=== PATIENT | female | born 1945 | race Caucasian/White ===

== ENCOUNTER → 2016-10-11 | Outpatient (CLI) | payer OTHER ==
[~2016-10-11] MED LIST: CHOL1TAB42 PO; CORACAP6 PO; LUTE15CA PO; MISCCAP80 PO; MULT-506 PO
--- NOTE | 2016-10-11 12:36 | MAMMOGRAPHY REPORT ---
BILATERAL DIGITAL SCREENING MAMMOGRAM WITH CAD: 10/11/2016 CLINICAL HISTORY: Routine screening. Patient has no complaints. TECHNIQUE: Current study was also evaluated with a Computer Aided Detection (CAD) system. Bilatera l CC and MLO views were obtained. COMPARISON: Comparison is made to exams dated: 09/22/2015 mammogram, 09/21/2014 mammogram, 08/13/2013 mammogram - [facility], 08/05/2012 mammogram, 07/31/2011 mammogram, and 05/26/2009. BREAST COMPOSITION: There are scattered areas of fibroglandular density in both breasts. FINDINGS: No suspicious masses, calcifications, or areas of architectural distortion are noted in e ither breast. There has been no significant interval change compared to prior exams. IMPRESSION: ACR BI-RADS CATEGORY 1: NEGATIVE There is no mammographic evidence of malignancy. A 1 year screening mammogram is recommended. The p atient will receive written notification of the results. Approximately 10% of breast cancers are not detected with mammography. A negative mammographic repor t should not delay biopsy if a clinically suggestive mass is present. Keshia Nash M.D. ah/:10/11/2016 10:24:14 Networker: Katie ROSE(Zach)(Basilia), [facility] letter sent: Normal 1/2 BI-RADS Code: ACR BI-RADS Category 1: Negative
== END | disposition home or self-care (01) ==
LOC: C.MAMM 09:59
PROVIDERS: ATTEND Family Medicine
DX: Z12.31 Encounter for screening mammogram for malignant neoplasm of breast (principal)

== ENCOUNTER 2021-03-04 16:04 | Inpatient (IN) ==
[2021-03-04] MEDS ORDERED: MoRPHine SULFATE 4 MG/ML 1 ML CARP\\VIAL IV STA (16:22)
[2021-03-04] MEDS ORDERED: ONDANSETRON INJ 2 MG/ML 2 ML VIAL IV STA (16:22)
[2021-03-04] MEDS ORDERED: PIPERACILLIN/TAZOBACTAM 4.5 GM/120 ML BAG IV ONE (16:25)
[2021-03-04] MEDS ORDERED: PIPERACILL/TAZOBAC CONSULT ACTIVE PRN ×2 (16:25→20:38)
--- NOTE | 2021-03-04 16:25 | Emergency Department Note ---
History of Present Illness General Chief complaint: Abdominal Pain Stated complaint: postive ct for diverticulitis-seen shonaabd pain Time Seen by Provider: 03/04/21 16:15 Source: patient History of Present Illness Provider complaint: Left lower quad abdominal pain Onset (ago): day(s) Location: abdomen and left Radiation: non-radiation Pain Consistency: + constant Maximum Pain Intensity: 9 Quality: + sharp Relieved By: + none Associated symptoms: no chest pain, no cough, no fever/chills, no nausea/vomiting and no shortness of breath This is a 75-year-old female presents with left lower quadrant abdominal pain since yesterday. She describes the pain is sharp. It is located in the left lower quadrant without radiation. No alleviating factors. No associated fever, vomiting, diarrhea or rectal bleeding. She did have a CAT scan today of the abdomen pelvis which showed diverticulitis and she was sent here for further evaluation. She denies any prior history of diverticulitis. She denies any chest pain, shortness of breath, cough or cold symptoms or urinary symptoms. Home Medications Medication Instructions Recorded Confirmed Type Lacto.acidophilus-Bif.animalis 1 cap PO DAILY 03/04/21 03/04/21 History [Probiotic] calcium carbonate [Os-Kayden] 500 mg PO DAILY 03/04/21 03/04/21 History cholecalciferol (vitamin D3) 50 mcg PO DAILY 03/04/21 03/04/21 History loratadine 10 mg PO DAILY 03/04/21 03/04/21 History lutein 0 mg PO DAILY 03/04/21 03/04/21 History multivitamin 1 tab PO DAILY 03/04/21 03/04/21 History Allergies Allergy/AdvReac Type Severity Reaction Status Date / Time No Known Allergies Allergy Mild Unverified 03/04/21 17:00 Past Med/Surg History Medical History (Updated 03/04/21 @ 19:52 by Julio Whitman MD) Hypothyroidism Osteopenia Social History Smoking Status: Never smoker Feels Safe at Home: Yes Review of Systems See HPI for pertinent positives & negatives. and A total of 10 systems reviewed and were otherwise negative Physical Exam Vital Signs Vital Signs - 24 hr 03/04/21 16:07 03/04/21 16:34 03/04/21 17:00 Temperature 36.5 C Temperature Source Oral Pulse Rate 88 Pulse Rate [Left Finger] 76 81 Pulse Rhythm [Left Finger] Regular Regular Pulse Strength [Left Finger] Normal Normal Respiratory Rate 20 20 18 Respiratory Effort / Characteristics Non-Labored Spontaneous Non-Labored Spontaneous Respiratory Depth Normal Normal Respiratory Pattern Regular Regular Blood Pressure 152/81 H Blood Pressure [Right Arm] 147/75 H 147/86 H Blood Pressure Mean 104 Blood Pressure Mean [Right Arm] 99 106 Blood Pressure Position [Right Arm] Sitting Sitting Pulse Oximetry 95 94 95 Oxygen Delivery Method Room Air Room Air Room Air Sepsis Recent Fever Within 48 Hours No Sepsis New/Unexplained Change in Mental Status N/A Sepsis Action Taken by Nursing No Action Required 03/04/21 18:21 03/04/21 19:00 Temperature Temperature Source Pulse Rate Pulse Rate [Left Finger] 70 Pulse Rhythm [Left Finger] Regular Pulse Strength [Left Finger] Normal Respiratory Rate 20 Respiratory Effort / Characteristics Non-Labored Spontaneous Respiratory Depth Normal Respiratory Pattern Regular Blood Pressure Blood Pressure [Right Arm] 122/71 114/61 Blood Pressure Mean Blood Pressure Mean [Right Arm] 88 78 Blood Pressure Position [Right Arm] Sitting Sitting Pulse Oximetry 96 Oxygen Delivery Method Room Air Sepsis Recent Fever Within 48 Hours Sepsis New/Unexplained Change in Mental Status Sepsis Action Taken by Nursing Constitutional: Vital signs reviewed. Eyes: Pupils are equal round reactive to light. Conjunctiva are noninjected. ENT: Pharynx is clear without erythema or exudate. Mucous membranes are slightly dry. Neck supple without meningeal signs. Respiratory: Clear to auscultation bilaterally. Breath sounds are equal bilaterally. Cardiovascular: Regular rate and rhythm. No rubs or gallops. GI: Soft, nondistended with left lower quadrant tenderness. Voluntary guarding. Bowel sounds are present. Musculoskeletal: No peripheral edema. No lower extremity tenderness. Integumentary: No cyanosis. or jaundice. Neurological: The patient is awake and alert. No focal deficits. Psychiatric: Anxious. Course Administered Medications Famotidine (Famotidine 20mg/5ml Iv Push) 20 mg IV DAILY [facility] Stop: 04/03/21 17:29 Last Admin: 03/04/21 19:31 Dose: 20 mg Documented by: [id number] Sodium Chloride (Nss) 500 mls @ 125 mls/hr IV .Q4H [place]AK[place] Stop: 04/03/21 16:29 Last Admin: 03/04/21 16:31 Dose: 125 mls/hr Documented by: [id number] Discontinued Medications Piperacillin Sod/Tazobactam Sod (Zosyn) 4.5 gm in 120 mls @ 240 mls/hr IV NOW ONE Stop: 03/04/21 16:54 Last Infusion: 03/04/21 17:03 Dose: 0 mls/hr Documented by: [id number] Admin: 03/04/21 16:31 Dose: 240 mls/hr Documented by: [id number] Morphine Sulfate (Morphine Sulfate 4 Mg/Ml 1 Ml Carp\Vial) 4 mg IV NOW STA Stop: 03/04/21 16:23 Last Admin: 03/04/21 16:31 Dose: 4 mg Documented by: [id number] Ondansetron HCl (Ondansetron Inj 2 Mg/Ml 2 Ml Vial) 4 mg IV NOW STA Stop: 03/04/21 16:23 Last Admin: 03/04/21 16:31 Dose: 4 mg Documented by: [id number] Medical Decision Making Differential Diagnosis Diverticulitis, abscess, perforation, peritonitis, dehydration Medical Records Attestation: I reviewed the patient's medical records. She had a CT of the abdomen pelvis today which showed the followin. Findings are consistent with acute diverticulitis of the distal descending/proximal sigmoid colon. 2. No intraperitoneal free air is identified. 3. Suspect a 1.5 cm intramural abscess of the sigmoid colon. 4. A small volume of free fluid in the left lower quadrant and pelvis is likely reactive. Home Medications Current Medication List: was personally reviewed by me Laboratory Data Attestation: I reviewed the patient's lab results. Lab Results 03/04/21 03/04/21 03/04/21 Range/Units 16:18 16:59 16:59 Lactate (0.4-2.0) mmol/L C-Reactive Protein 7.90 H (0-0.29) mg/dl COVID-19 Eval Order Covid19 at [facility] [place] SARS-CoV-2 (PCR) NEGATIVE (Negative) 03/04/21 Range/Units 18:37 Lactate 1.7 (0.4-2.0) mmol/L C-Reactive Protein (0-0.29) mg/dl COVID-19 Eval Order SARS-CoV-2 (PCR) (Negative) MDM Narrative I did evaluate the patient as noted above. She is presenting with a CAT scan which is positive for diverticulitis as well as an intramural abscess. She had blood work earlier today which showed a white count of 19,000. IV access was established. I did treat her with IV morphine and Zofran. She is also given normal saline IV. I also treated her with Zosyn 4.5 g IV. I did discuss the case with the surgeon on-call. Dr. Hernandez recommended IV antibiotics and did not feel any acute surgical intervention was required. I did order a Covid swab which was negative. I did discuss the case with the hospitalist and case resolution specialist. Impression & Plan Acute diverticulitis, Abscess of sigmoid colon due to diverticulitis Discharge Plan Visit Data Chief Complaint: Abdominal Pain Stated Complaint: postive ct for diverticulitis-seen [facility] pain ED Provider: Julio Whitman Discharge Problem: Acute diverticulitis, Abscess of sigmoid colon due to diverticulitis Patient Disposition: Being Evaluated by Hospitalist Forms Stand Alone Forms: My [facility] Prescriptions Prescriptions: No Action multivitamin Tablet 1 tab PO DAILY RF: 0 calcium carbonate [Os-Kayden] 500 mg calcium (1,250 mg) Tablet 500 mg PO DAILY RF: 0 loratadine 10 mg Tablet 10 mg PO DAILY RF: 0 cholecalciferol (vitamin D3) 50 mcg (2,000 unit) Tablet 50 mcg PO DAILY RF: 0 lutein 10 mg Tablet 0 mg PO DAILY RF: 0 Probiotic 5 billion cell Capsule, Sprinkle 1 cap PO DAILY RF: 0 Referrals Referrals: Julieth Farias DO [Primary Care Provider] -
[2021-03-04] MEDS: SODIUM CHLORIDE 0.9% 500 ML IV SCH (16:31)
--- NOTE | 2021-03-04 17:50 | History & Physical Report ---
Date of Service March 04, 2021 Assessment & Plan (1) Diverticulitis: Findings are consistent with acute diverticulitis of the distal descending/proximal sigmoid colon; Suspect a 1.5 cm intramural abscess of the sigmoid colon. - Acute- no evidence of perforation - No evidence of sepsis - Lactate pending - Zosyn 3.375GM IV - Clears - Follow clinical response, consider re-imaging in 48 hours to re-evaluate - Famotidine while on clears with her increase in NSAID use over the week (2) Leukocytosis: WBC 19 with NLR 8:1 - Lactate pending (3) Osteopenia: Vitamin D and calcium carb on hold - restart when warranted (4) Elevated glucose level: No history of DM - Likely stress response follow BMP (5) DVT prophylaxis: CODE; FULL VTE: SCD's Diet: Clear Dispo: medical floor History of Present Illness Primary Care Provider: Julieth Farias, DO 75 YOF with medical history of osteopenia, Patient is on herbals and vitamins at home. Patient had her colonoscopy performed in October by [facility] and per her reports had some polyps and diverticula. She came to the emergency room today after begin seen at urgent care for 1 day history of left lower quadrant abdominal pain. She woke up yesterday with some mild abdominal and lower back pain, went out and did some work in the garden and later in the day started not feeling well. Her lower quadrant lower abdominal pain began as cramping and intermittent pain and progressed to sharp and constant pain today. She endorses that they usually eat allot of fiber and nuts within their diet. She reports that at urgent care she had an elevated temperature >101 degrees. She had routine labs drawn and CT scan of her abdomen with contrast performed. Her CT scan revealed a pericolonic thickening and inflammation at the distal/descending/proximal sigmoid colon with a 1.5x0.9 cm intramural abscess. General surgery was notified by EMD and recommendation was IV Abx and monitoring. Patient was started on Zosyn and will continue this. She will be admitted to medical floor, continue IVF, clear diet if she is able, pain control and monitor her biomarkers/infective trends. Patient had 2 root canals earlier in the week and has also been increasing her Motrin use, she denies any upper abdominal pain or discomfort and no changes with her stool. Allergies Allergy/AdvReac Type Severity Reaction Status Date / Time No Known Allergies Allergy Mild Unverified 03/04/21 17:00 Home Medications Medication Instructions Recorded Confirmed Type Lacto.acidophilus-Bif.animalis 1 cap PO DAILY 03/04/21 03/04/21 History [Probiotic] calcium carbonate [Os-Kayden] 500 mg PO DAILY 03/04/21 03/04/21 History cholecalciferol (vitamin D3) 50 mcg PO DAILY 03/04/21 03/04/21 History loratadine 10 mg PO DAILY 03/04/21 03/04/21 History lutein 0 mg PO DAILY 03/04/21 03/04/21 History multivitamin 1 tab PO DAILY 03/04/21 03/04/21 History Past Med/Surg History Medical History Hypothyroidism Osteopenia Social History Smoking Status: Never smoker Hx Alcohol Use: Yes Alcohol type: wine Hx Substance Use: No Preferred Language: Lao Communication Ability: Effective [employer]ner Required: No Beliefs That Will Affect Care: None Current Living Situation: Spouse Other Information That Helps Us Care for You: No Feels Safe at Home: Yes Safety Concerns: Feels Safe At This Time Assistive Devices: Glasses Review of Systems Review of Systems: REVIEW OF SYSTEMS: Constitutional: (+) fever, No sweats or chills Eyes: No diplopia, no worsening or blurred vision ENT: normal hearing, no trouble swallowing Respiratory: No cough, sputum, dyspnea at rest or on exertion Cardiovascular: No chest pain, tightness or palpitations Abdomen: (+) pain, nausea, No vomiting, diarrhea or constipation Musculoskeletal: No joint pain, calf pain, swelling Neurologic: No weakness, numbness/tingling, or balance problems Psychiatric: No anxiety or depression Skin: No rash or itch Physical Exam Physical Exam: PHYSICAL EXAM: General: awake, alert, no apparent distress Head: Normocephalic, atraumatic ENT: PERRL, EOMI, no pharyngeal exudate, mucous membranes dry Neuro: AAO x 3, speech clear and appropriate, strength intact bilaterally 5/5, sensation intact and equal all extremities and dermatomes, no pronator drift Chest: equal rise and fall of the chest, no accessory muscle use, no heaves or thrills, Clear to auscultation, on room air, Cardiac: Regular rate and rhythm, telemetry reviewed, skin warm dry, cap refill <3 seconds, peripheral pulses +2 no JVD, no murmur, no JVD, no edema GI: NABS x 4 quadrants, soft, tender to palpation LLQ, non rigid, no extraluminal air seen on CT scan : Spontaneously voiding, no pain, no CVA tenderness, Extremities: Normal inspection, no peripheral edema or erythema, calfs nontender to palpation Psych: Normal mood and affect Skin: no rash or erythema Results & Data Results & Data ([facility]) Vital Signs (Past 12 Hours) Vital Signs Temp Pulse Resp BP Pulse Ox 03/04/21 16:07 36.5 C 88 20 152/81 H 95 Laboratory Results Abnormal Labs 03/04/21 16:18 C-Reactive Protein 7.90 H Laboratory Results - last 24 hr 03/04/21 03/04/21 03/04/21 16:18 16:59 16:59 C-Reactive Protein 7.90 H COVID-19 Eval Order Covid19 at [facility] SARS-CoV-2 (PCR) Pending WBC 19.76 NEUTS # 16.8 NA 134 Glucose [address] SCAN OF THE ABDOMEN AND PELVIS WITH IV CONTRAST CLINICAL HISTORY: Left lower quadrant abdominal pain. COMPARISON STUDY: No priors. TECHNIQUE: Following the IV administration of 95 cc of Optiray 320, CT scan of the abdomen and pelvis is performed from the lung bases to the proximal femora. Images are reviewed in the axial, sagittal, and coronal planes. IV contrast was administered without complication. A dose lowering technique was utilized adhering to the principles of ALARA. CT DOSE: 585.99 mGycm FINDINGS: Lung bases: The heart is normal in size and without pericardial effusion. The lung bases are clear noting dependent atelectasis. Liver: The contrast-enhanced liver is normal in size, contour, and attenuation. There is no intrahepatic biliary ductal dilatation. The hepatic veins and portal veins are patent. Gallbladder: Unremarkable. Spleen: Normal in size and attenuation. Pancreas: Unremarkable. Adrenal glands: A 1.8 cm low-attenuation left adrenal nodule likely represents an adenoma but cannot be definitively characterized due to the presence of IV contrast. The right adrenal gland is normal in appearance. Kidneys: The contrast enhanced kidneys are normal in size and without hydronephrosis. The kidneys enhance and excrete symmetrically. A 1.6 cm cyst is noted in the right upper pole. Abdominal vasculature: The abdominal aorta is normal in course and caliber noti ng mild atherosclerotic calcification. Bowel: There is moderate sigmoid diverticulosis. There is significant wall thickening with pericolonic inflammation and fluid involving the distal descending/proximal sigmoid colon consistent with acute diverticulitis. Suspect a 1.5 x 0.9 cm intramural abscess of the sigmoid colon on image #327. No bowel obstruction is seen. The appendix is well-visualized and normal. Peritoneum: There is a small volume of free fluid in the left lower quadrant and in the pelvis. No intraperitoneal free air is identified. There is a small fat- containing umbilical hernia. Lymphadenopathy: None. Pelvic viscera: The bladder is normal as visualized. The uterus is heterogeneous suggesting fibroids. No adnexal lesion is seen. Skeletal structures: The skeletal structures are osteopenic. Mild lumbosacral spondylosis is observed. No lytic or blastic lesions are seen. IMPRESSION: 1. Findings are consistent with acute diverticulitis of the distal descending/proximal sigmoid colon. 2. No intraperitoneal free air is identified. 3. Suspect a 1.5 cm intramural abscess of the sigmoid colon. 4. A small volume of free fluid in the left lower quadrant and pelvis is likely reactive. 5. Additional findings as above. Electronically signed by: Ryan Kraus M.D. 03/04/2021 3:51 PM Medications Administered Sodium Chloride (Nss) 500 mls @ 125 mls/hr IV .Q4H [place] Stop: 04/03/21 16:29 Last Admin: 03/04/21 16:31 Dose: 125 mls/hr Documented by: [id number] Discontinued Medications Piperacillin Sod/Tazobactam Sod (Zosyn) 4.5 gm in 120 mls @ 240 mls/hr IV NOW ONE Stop: 03/04/21 16:54 Last Infusion: 03/04/21 17:03 Dose: 0 mls/hr Documented by: [id number] Admin: 03/04/21 16:31 Dose: 240 mls/hr Documented by: [id number] Morphine Sulfate (Morphine Sulfate 4 Mg/Ml 1 Ml Carp\Vial) 4 mg IV NOW STA Stop: 03/04/21 16:23 Last Admin: 03/04/21 16:31 Dose: 4 mg Documented by: [id number] Ondansetron HCl (Ondansetron Inj 2 Mg/Ml 2 Ml Vial) 4 mg IV NOW STA Stop: 03/04/21 16:23 Last Admin: 03/04/21 16:31 Dose: 4 mg Documented by: [id number] Additional Comments: Pending on admission Code Status & VTE Plan Code Status CODE: FULL VTE: SCD's, Heparin 5000 sub q VTE Prophylaxis Plan VTE Prophylaxis will be ordered: Yes Supervising Physician Co-Signing Physician Notes Patient seen and examined by bedside. I obtained a history and physical examination. I reviewed above note and agree with it. I discussed plan of care with patient and JOLIE Ramon. Patient will be placed on a clear liquid diet and continue IV antibiotics for acute diverticulitis PG Care Time/CCT Total # of Minutes Spent Total Time Spent with Patient: Total time spent is greater than 50% in coordination of care (as documented) at patient's floor/unit and/or counseling p atient: Coding Level of Care Code 58291 Initial Inpt Care Lvl 2 Diagnoses Diverticulitis K57.92 Leukocytosis D72.829 Leukocytosis type: unspecified Osteopenia M85.80 Osteopenia location: unspecified Elevated glucose level R73.09 DVT prophylaxis Z29.9 (1) Leukocytosis Leukocytosis type: unspecified Qualified Code(s): D72.829 - Elevated white blood cell count, unspecified (2) Osteopenia Osteopenia location: unspecified Qualified Code(s): M85.80 - Other specified disorders of bone density and structure, unspecified site
[2021-03-04] MEDS: FAMOTIDINE 20MG/5ML IV PUSH IV SCH (19:31)
[2021-03-04] MEDS ORDERED: MoRPHine SULFATE 2 MG/ML CARP IV PRN ×2 (20:38)
[2021-03-04] MEDS ORDERED: POLYETHYLENE (MIRALAX) 17 GM PACK PO PRN (20:38)
[2021-03-04] MEDS ORDERED: ACETAMINOPHEN 325 MG TAB PO PRN (20:38)
[2021-03-04] MEDS ORDERED: ACETAMINOPHEN 1000 MG/100 ML IV IV PRN (20:38)
[2021-03-04] MEDS: LACTATED RINGER'S 1,000 ML IV SCH (22:07)
[2021-03-04] MEDS: HEPARIN SOD 5,000 UNIT/0.5 ML VIAL SQ SCH (22:07)
--- NOTE | 2021-03-04 22:08 | Surgery Consultation ---
Date of Consultation March 04, 2021 Assessment & Plan (1) Acute diverticulitis: Patient has been admitted to the hospital in the hospital service proceeding as follows: Continue analgesics Continue antiemetics N.p.o. status for bowel rest IV fluid for hydration Continue antibiotics. The patient has received Zosyn thus far. I discussed with the patient would be preferable to handle the situation by treating her infection in a conservative manner as if she required an urgent operation require colostomy which she would like to avoid. We will monitor the patient clinically and repeat imaging can be considered if the patient does not clinically improve. We will continue to follow along with the patient is hospitalized Supervising Physician Co-Signing Physician Notes films reviewed yesterday, case reviewed with ED and SUSHIL Suresh. see today's progress note for full details. History of Present Illness Reason for Consultation: Diverticulitis with abscess Attending Physician: Sebastian Duque History of Present Illness This is a 75-year-old female who presented to the [facility] emergency department secondary to abdominal pain. Patient notes she was in her usual state of health until yesterday when she developed some lower abdominal pain which is greatest on the left side. She notes the pain is cramp-like in nature without palliative or provocative factors. She also notes the pain does not radiate. She denies any nausea or vomiting. She also denies any fevers, shakes, chills. Patient denies any bright blood per rectum, melena, or hematochezia. She notes that she did have a colonoscopy earlier this year where she did have some polyps removed and she was also told she had diverticular disease. Due to her abdominal pain she contacted her primary care team who ordered an outpatient CT scan. The CT scan showed the patient had acute diverticulitis of the descending colon as well as the sigmoid colon. No intraperitoneal free air was noted the patient was noted to have a 1.5 cm intramural abscess of the sigmoid colon. Because of the CT scan findings she was directed to the emergency department by her primary care team. In addition to the CT scan she did have labs where her white blood cell count was elevated at 19.7. Her hemoglobin, hematocrit, and platelet count were all noted to be within normal range. Chemistry profile showed her sodium was 134. Potassium, BUN, and creati nine were all noted to be within the normal range. Lactic acid level was noted to be normal. Patient did have a Covid test which was negative. At the time of my interview the patient is resting comfortably in bed. She did have some abdominal pain but noted that it was improved since admission and she was in no distress Allergies Allergy/AdvReac Type Severity Reaction Status Date / Time No Known Allergies Allergy Mild Unverified 03/04/21 17:00 Home Medications Medication Instructions Recorded Confirmed Type Lacto.acidophilus-Bif.animalis 1 cap PO DAILY 03/04/21 03/04/21 History [Probiotic] calcium carbonate [Os-Kayden] 500 mg PO DAILY 03/04/21 03/04/21 History cholecalciferol (vitamin D3) 50 mcg PO DAILY 03/04/21 03/04/21 History loratadine 10 mg PO DAILY 03/04/21 03/04/21 History lutein 0 mg PO DAILY 03/04/21 03/04/21 History multivitamin 1 tab PO DAILY 03/04/21 03/04/21 History Patient History Medical History Hypothyroidism Osteopenia Social History Smoking Status: Never smoker Hx Alcohol Use: Yes Alcohol type: wine Hx Substance Use: No Preferred Language: Amharic Communication Ability: Effective 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 Beliefs That Will Affect Care: None Current Living Situation: Spouse Other Information That Helps Us Care for You: No Feels Safe at Home: Yes Safety Concerns: Feels Safe At This Time Assistive Devices: Glasses Review of Systems Constitutional: no fever and no chills Eyes: no diplopia Ear, Nose, Mouth, Throat: no ear pain Respiratory: no cough and no dyspnea Cardiovascular: no chest pain Gastrointestinal: + abdominal pain; no nausea and no vomiting Genitourinary: no dysuria Musculoskeletal: no back pain Integumentary: no rash Neurologic: no localized weakness Physical Exam Constitutional: well developed and well nourished; no acute distress Eyes: no conjunctival abnormality ENMT: Ears: no hearing impairment Neck: trachea midline Respiratory: normal respiratory effort, lungs clear to auscultation Cardiovascular: Rate/Rhythm: regular rate and regular rhythm Gastrointestinal (Abdomen): Abdomen is soft and nondistended with positive bowel sounds. Patient did have pain with palpation which is greatest in the left lower quadrant. She did have minor rebound tenderness. Musculoskeletal: No calf tenderness Skin: no rashes, warm and dry Neurologic: moves all extremities Psychiatric: A+Ox3, euthymic affect Results & Data ([facility]) Vital Signs (Past 12 Hours) Vital Signs Temp Pulse Pulse Resp BP BP Pulse Ox 03/04/21 19:55 81 20 122/79 98 03/04/21 19:00 114/61 03/04/21 18:21 70 20 122/71 96 03/04/21 17:00 81 18 147/86 H 95 03/04/21 16:34 76 20 147/75 H 94 03/04/21 16:07 36.5 C 88 20 152/81 H 95 PG Care Time/CCT Total # of Minutes Spent Total Time Spent with Patient: Total time spent is greater than 50% in coordina tion of care (as documented) at patient's floor/unit and/or counseling patient: Coding Level of Care Code 73936 Inpt Consult Level 5 Diagnoses Acute diverticulitis K57.92
[2021-03-04] MEDS: PIPERACILLIN/TAZOBACTAM 3.375 GM in DEXTROSE 5% 100 ML IV SCH (22:55)
--- NOTE | 2021-03-05 05:11 | Surgery Progress Note ---
Date of Service March 05, 2021 Assessment & Plan (1) Acute diverticulitis: Patient has been admitted to the hospital in the hospital service proceeding as follows: Continue analgesics Continue antiemetics Continue n.p.o. status Continue IV fluid for hydration Continue antibiotics in the form of Zosyn. If the patient continues to clinically improve over the next 24 to 48 hours we may consider advancing her diet beginning with sips of clear liquids but this will depend on her clinical status. We will continue to follow along with the patient is hospitalized Admission and Anticipated Discharge Date Admission Date: March 04, 2021 Supervising Physician Co-Signing Physician Notes Patient s&e, agree with above. Diverticulitis with intramural abscess on outpnt CT, wbc 19 on admission. admitted to medicine, on abx. Feeling better, dandy tender. afvss, abd ttp in llq. WBC down to 10. CT personally reviewed and agree with diverticulitis with intramural abscess vs. inflamed diverticula. continue abx, may have clears. no surgery for now, had recent colonoscopy. Subjective Patient notes she has had improvement of her abdominal pain since admission. She does continue have left lower quadrant abdominal pain but again this is improved. She denies any fevers, shakes, chills. She denies any nausea or vomiting. She denies any bowel movement or flatus since admission. Physical Exam Gastrointestinal (Abdomen): Abdomen is soft and nondistended with hypoactive bowel sounds. There is pain with palpation in the left lower quadrant. Patient did have minor rebound tenderness which was not as severe as what was noted during last evening's consultation Results & Data ([facility]) Vital Signs (Past 12 Hours) Vital Signs Temp Pulse Pulse Resp BP BP Pulse Ox 03/04/21 22:53 37 C 66 16 98/65 L 93 03/04/21 20:45 36.9 C 72 16 108/63 94 03/04/21 19:55 81 20 122/79 98 03/04/21 19:00 114/61 03/04/21 18:21 70 20 122/71 96 PG Care Time/CCT Total # of Minutes Spent Total Time Spent with Patient: Total time spent is greater than 50% in coordination of care (as documented) at patient's floor/unit and/or counseling patient: Coding Level of Care Code 27271 Subseq Hosp Care Lvl 1 Diagnoses Acute diverticulitis K57.92
[2021-03-05] MEDS: PIPERACILLIN/TAZOBACTAM 3.375 GM in DEXTROSE 5% 100 ML IV SCH ×3 (05:40→21:21)
[2021-03-05] MEDS: HEPARIN SOD 5,000 UNIT/0.5 ML VIAL SQ SCH ×3 (05:40→21:21)
[2021-03-05 07:37] LABS: Basophils # (auto) 0.02 K/uL (0-0.2); Basophils % (auto) 0.2 %; Eosinophils # (auto) 0.12 K/uL (0-0.5); Eosinophils % (auto) 1.2 %; Hematocrit (blood only) 37.3 % (37-47); Hemoglobin 12.6 g/dL (12.0-16.0); Immature Granulocytes # (auto) 0.02 K/uL (0.00-0.02); Immature Granulocytes % (auto) 0.2 %; Lymphocytes # (auto) 2.08 K/uL (1.2-3.4); Mean Corpuscular Hemoglobin 32.2 pg (25-34); Mean Corpuscular Hgb Conc 33.8 g/dL (32-36); Mean Corpuscular Volume 95.4 fL (80-100); Monocytes # (auto) 0.89 K/uL (0.11-0.59); Monocytes % (auto) 8.6 %; Neutrophils # (auto) 7.26 K/uL (1.4-6.5); Neutrophils % (auto) 69.8 %; Platelet Count 376 K/uL (130-400); RDW Coefficient of Variation 12.4 % (11.5-14.5); RDW Standard Deviation 43.3 fL (36.4-46.3); Red Blood Count 3.91 M/uL (4.2-5.4); White Blood Count 10.39 K/uL (4.8-10.8)
[2021-03-05 08:03] LABS: BUN Creatinine Ratio 11.9 (10-20); Calcium 8.9 mg/dl (8.5-10.1); Creatinine Clr Calc Pharmacy 55.7 ml/min; Est GFR (African American) 86.8 ml/min; Est GFR (Non-African American) 74.9 ml/min; Magnesium 2.2 mg/dl (1.8-2.4); Potassium 3.6 mmol/L (3.5-5.1)
[2021-03-05] MEDS: LACTATED RINGER'S 1,000 ML IV SCH ×3 (09:39→21:21)
[2021-03-05] MEDS: FAMOTIDINE 20 MG in SYRINGE 3 ML IV SCH (10:30)
--- NOTE | 2021-03-05 23:46 | Hospitalist Progress Note ---
Date of Service March 05, 2021 Assessment & Plan (1) Diverticulitis: Findings are consistent with acute diverticulitis of the distal descending/proximal sigmoid colon; Suspect a 1.5 cm intramural abscess of the sigmoid colon. - Acute- no evidence of perforation - No evidence of sepsis - Zosyn 3.375GM IV - Tolerating Clears since admission - Appreciating input from Gen surgery. -Pain however remains, but has decreased. - Famotidine while on clears with her increase in NSAID use over the week Appears patient is progressing with conservative management (2) Leukocytosis: WBC 19 with NLR 8:1 -WBC has improved to 10. - Lactate 1.7 (3) Osteopenia: Vitamin D and calcium carb on hold - restart when warranted (4) Elevated glucose level: No history of DM - Likely stress response follow BMP (5) DVT prophylaxis: CODE; FULL VTE: SCD's Diet: Clear Dispo: medical floor Admission and Anticipated Discharge Date Admission Date: March 04, 2021 Subjective Patient reports her pain has improved. Review of Systems Review of Systems: All systems reviewed & are unremarkable except as noted in HPI & below Physical Exam Physical Exam: General: awake, alert, no apparent distress Head: Normocephalic, atraumatic ENT: PERRL, EOMI, no pharyngeal exudate, mucous membranes dry Neuro: AAO x 3, speech clear and appropriate, strength intact bilaterally 5/5, sensation intact and equal all extremities and dermatomes, no pronator drift Chest: equal rise and fall of the chest, no accessory muscle use, no heaves or thrills, Clear to auscultation, on room air, Cardiac: Regular rate and rhythm, telemetry reviewed, skin warm dry, cap refill <3 seconds, peripheral pulses +2 no JVD, no murmur, no JVD, no edema GI: NABS x 4 quadrants, soft, tender to palpation LLQ, non rigid, no extraluminal air seen on CT scan : Spontaneously voiding, no pain, no CVA tenderness, Extremities: Normal inspection, no peripheral edema or erythema, calfs nontender to palpation Psych: Normal mood and affect Skin: no rash or erythema Results & Data Results & Data ([facility]) Vital Signs (Past 12 Hours) Vital Signs Temp Pulse Resp BP Pulse Ox 03/05/21 22:18 36.9 C 58 L 16 125/69 95 03/05/21 18:53 36.6 C 70 18 109/68 97 PG Care Time/CCT Total # of Minutes Spent Total Time Spent with Patient: Total time spent is greater than 50% in coordination of care (as documented) at patient's floor/unit and/or counseling patient: Coding Level of Care Code 07070 Subseq Hosp Care Lvl 2 Diagnoses Diverticulitis K57.92 Leukocytosis D72.829 Leukocytosis type: unspecified Osteopenia M85.80 Osteopenia location: unspecified Elevated glucose level R73.09 DVT prophylaxis Z29.9 Time Spent (min) 25 (1) Leukocytosis Leukocytosis type: unspecified Qualified Code(s): D72.829 - Elevated white blood cell count, unspecified (2) Osteopenia Osteopenia location: unspecified Qualified Code(s): M85.80 - Other specified disorders of bone density and structure, unspecified site
[2021-03-06] MEDS: HEPARIN SOD 5,000 UNIT/0.5 ML VIAL SQ SCH ×3 (05:29→20:52)
[2021-03-06] MEDS: PIPERACILLIN/TAZOBACTAM 3.375 GM in DEXTROSE 5% 100 ML IV SCH ×3 (05:29→20:45)
--- NOTE | 2021-03-06 06:11 | Electrocardiogram Report ---
Test Reason : Blood Pressure : / mmHG Vent. Rate : 072 BPM Atrial Rate : 072 BPM P-R Int : 176 ms QRS Dur : 080 ms QT Int : 366 ms P-R-T Axes : 000 142 040 degrees QTc Int : 400 ms Normal sinus rhythm Low voltage QRS Probable Limb lead reversal Abnormal ECG When compared with ECG of 09-MAY-2016 10:42, Nonspecific T wave abnormality, worse in Inferior leads Limb lead reversal is now present Confirmed by Mo Caruso ([id number]) on 03/06/2021 6:11:25 AM Referred By: Sebastian Medina Confirmed By:Mo Caruso
[2021-03-06 06:14] LABS: Basophils # (auto) 0.05 K/uL (0-0.2); Basophils % (auto) 0.6 %; Eosinophils # (auto) 0.19 K/uL (0-0.5); Eosinophils % (auto) 2.4 %; Hematocrit (blood only) 36.2 % (37-47); Hemoglobin 12.3 g/dL (12.0-16.0); Immature Granulocytes # (auto) 0.01 K/uL (0.00-0.02); Immature Granulocytes % (auto) 0.1 %; Lymphocytes # (auto) 2.95 K/uL (1.2-3.4); Lymphocytes % (auto) 37.2 %; Mean Corpuscular Hemoglobin 32.2 pg (25-34); Mean Corpuscular Volume 94.8 fL (80-100); Mean Platelet Volume 9.9 fL (7.4-10.4); Monocytes % (auto) 7.6 %; Neutrophils # (auto) 4.13 K/uL (1.4-6.5); Neutrophils % (auto) 52.1 %; Platelet Count 385 K/uL (130-400); RDW Coefficient of Variation 12.1 % (11.5-14.5); RDW Standard Deviation 41.5 fL (36.4-46.3); Red Blood Count 3.82 M/uL (4.2-5.4); White Blood Count 7.93 K/uL (4.8-10.8)
[2021-03-06 06:44] LABS: BUN Creatinine Ratio 10.4 (10-20); Calcium 8.8 mg/dl (8.5-10.1); Creatinine Clr Calc Pharmacy 65.8 ml/min; Est GFR (African American) 100.9 ml/min; Magnesium 2.1 mg/dl (1.8-2.4); Potassium 3.7 mmol/L (3.5-5.1)
[2021-03-06] MEDS: LACTATED RINGER'S 1,000 ML IV SCH (07:46)
[2021-03-06] MEDS: FAMOTIDINE 20 MG in SYRINGE 3 ML IV SCH (09:16)
--- NOTE | 2021-03-06 11:48 | Hospitalist Progress Note ---
Date of Service March 06, 2021 Assessment & Plan (1) Diverticulitis: Findings are consistent with acute diverticulitis of the distal descending/proximal sigmoid colon; Suspect a 1.5 cm intramural abscess of the sigmoid colon. - Acute- no evidence of perforation - No evidence of sepsis - Zosyn 3.375GM IV - Tolerating clears since admission, will advance to full liquid diet today. Possible discharge tomorrow - Appreciating input from Gen surgery. -Pain however remains, but has decreased. - Famotidine while on clears with her increase in NSAID use over the week Appears patient is progressing with conservative management (2) Leukocytosis: WBC 19 with NLR 8:1 -WBC has improved to 10. - Lactate 1.7 (3) Osteopenia: Vitamin D and calcium carb on hold - restart when warranted (4) DVT prophylaxis: CODE: FULL VTE: Heparin 5000 units SQ Q8H Diet: Full Dispo: medical floor Admission and Anticipated Discharge Date Admission Date: March 04, 2021 Subjective Pain improving. Wishes to start on full liquids, tolerating clear liquids fine. Feels much improved since admission. No nausea or vomiting. Review of Systems Review of Systems: All systems reviewed & are unremarkable except as noted in HPI & below Physical Exam Constitutional: WD/WN, vitals as above Respiratory: normal respiratory effort, lungs clear to auscultation Cardiovascular: RRR, no murmur, no edema Gastrointestinal (Abdomen): Inspection/Auscultation: abdomen normal to inspection and normal bowel sounds; abdomen not distended Percussion/Palpation: abdomen soft; abdomen nontender, no guarding and abdomen not rigid Musculoskeletal: no cyanosis or clubbing, extremities motor strength 5/5 Psychiatric: A+Ox3, euthymic affect Results & Data Results & Data ([facility]) Vital Signs (Past 12 Hours) Vital Signs Temp Pulse Resp BP Pulse Ox 03/06/21 07:48 36.6 C 78 16 111/64 96 PG Care Time/CCT Total # of Minutes Spent Total Time Spent with Patient: Total time spent is greater than 50% in coordination of care (as documented) at patient's floor/unit and/or counseling patient: Coding Level of Care Code 74154 Subseq Hosp Care Lvl 2 Diagnoses Diverticulitis K57.92 Leukocytosis D72.829 Leukocytosis type: unspecified Osteopenia M85.80 Osteopenia location: unspecified DVT prophylaxis Z29.9 (1) Leukocytosis Leukocytosis type: unspecified Qualified Code(s): D72.829 - Elevated white blood cell count, unspecified (2) Osteopenia Osteopenia location: unspecified Qualified Code(s): M85.80 - Other specified disorders of bone density and structure, unspecified site
--- NOTE | 2021-03-06 11:54 | Surgery Progress Note ---
Date of Service March 06, 2021 Assessment & Plan (1) Acute diverticulitis: Continue Zosyn can advance to full liquids, low residue tonight or tomorrow seen with Dr. Hernandez Admission and Anticipated Discharge Date Admission Date: March 04, 2021 Supervising Physician Co-Signing Physician Notes pnt s&e, agree with above. resolving diverticulitis, still some tenderness but improving, no pain at baseline, wbc normal. adv to full liquids, then d/c on low fiber and 10-14 days total abx. Subjective no pain, tolerating clears Physical Exam Gastrointestinal (Abdomen): Percussion/Palpation: + abdomen tender (minimal LLQ) and abdomen soft Results & Data ([facility]) Vital Signs (Past 12 Hours) Vital Signs Temp Pulse Resp BP Pulse Ox 03/06/21 07:48 36.6 C 78 16 111/64 96 PG Care Time/CCT Total # of Minutes Spent Total Time Spent with Patient: Total time spent is greater than 50% in coordination of care (as documented) at patient's floor/unit and/or counseling patient: Coding Level of Care Code 88851 Subseq Hosp Care Lvl 1 Diagnoses Acute diverticulitis K57.92
[2021-03-07] MEDS: PIPERACILLIN/TAZOBACTAM 3.375 GM in DEXTROSE 5% 100 ML IV SCH ×2 (05:10→13:47)
[2021-03-07] MEDS: HEPARIN SOD 5,000 UNIT/0.5 ML VIAL SQ SCH ×2 (05:12→13:47)
[2021-03-07 07:11] LABS: Basophils # (auto) 0.03 K/uL (0-0.2); Basophils % (auto) 0.5 %; Eosinophils % (auto) 3.3 %; Hematocrit (blood only) 40.7 % (37-47); Immature Granulocytes # (auto) 0.01 K/uL (0.00-0.02); Immature Granulocytes % (auto) 0.2 %; Lymphocytes % (auto) 33.1 %; Mean Corpuscular Hemoglobin 31.7 pg (25-34); Mean Corpuscular Hgb Conc 34.4 g/dL (32-36); Mean Corpuscular Volume 92.3 fL (80-100); Monocytes # (auto) 0.54 K/uL (0.11-0.59); Monocytes % (auto) 8.9 %; Neutrophils # (auto) 3.27 K/uL (1.4-6.5); Platelet Count 433 K/uL (130-400); RDW Standard Deviation 40.6 fL (36.4-46.3); Red Blood Count 4.41 M/uL (4.2-5.4); White Blood Count 6.05 K/uL (4.8-10.8)
[2021-03-07] MEDS: FAMOTIDINE 20MG/5ML IV PUSH IV SCH (07:14)
[2021-03-07] MEDS: SODIUM CHLORIDE 0.9% 500 ML IV SCH (07:14)
[2021-03-07 07:37] LABS: Calcium 9.6 mg/dl (8.5-10.1); Creatinine Clr Calc Pharmacy 51.7 ml/min; Est GFR (African American) 79.4 ml/min; Est GFR (Non-African American) 68.5 ml/min; Magnesium 2.3 mg/dl (1.8-2.4); Potassium 3.5 mmol/L (3.5-5.1)
--- NOTE | 2021-03-07 07:57 | Surgery Progress Note ---
Date of Service March 07, 2021 Assessment & Plan (1) Acute diverticulitis: WBC 6 switch to po abx at d/c low residue for the next several weeks ok for d/c if tolerates diet, no need to f/u in surgery clinic Admission and Anticipated Discharge Date Admission Date: March 04, 2021 Supervising Physician Co-Signing Physician Notes pnt s&e, agree with above. resolving diverticulitis, feeling much better. abd soft, mildly ttp in llq, wbc normal, tolerated low fiber diet. d/c to home, low fiber diet for 4 weeks, abx for 10-14 days. had recent colonoscopy, no indication for outpatient resection at this time Subjective hungry, BM x2 Physical Exam Gastrointestinal (Abdomen): Percussion/Palpation: abdomen soft; abdomen nontender Results & Data ([facility]) Vital Signs (Past 12 Hours) Vital Signs Temp Pulse Resp BP Pulse Ox 03/07/21 07:16 36.8 C 54 L 16 119/76 96 03/06/21 23:45 36.8 C 62 16 130/78 95 PG Care Time/CCT Total # of Minutes Spent Total Time Spent with Patient: Total time spent is greater than 50% in coordination of care (as documented) at patient's floor/unit and/or counseling patient: Coding Level of Care Code 57401 Subseq Hosp Care Lvl 1 Diagnoses Acute diverticulitis K57.92
[2021-03-07] MEDS: FAMOTIDINE 20 MG in SYRINGE 3 ML IV SCH (08:23)
--- NOTE | 2021-03-07 12:34 | Discharge Summary ---
Date of Service March 07, 2021 Admission HPI Per Admitting Provider 75 YOF with medical history of osteopenia, Patient is on herbals and vitamins at home. Patient had her colonoscopy performed in October by [facility] and per her reports had some polyps and diverticula. She came to the emergency room today after begin seen at urgent care for 1 day history of left lower quadrant abdominal pain. She woke up yesterday with some mild abdominal and lower back pain, went out and did some work in the garden and later in the day started not feeling well. Her lower quadrant lower abdominal pain began as cramping and intermittent pain and progressed to sharp and constant pain today. She endorses that they usually eat allot of fiber and nuts within their diet. She reports that at urgent care she had an elevated temperature >101 degrees. She had routine labs drawn and CT scan of her abdomen with contrast performed. Her CT scan revealed a pericolonic thickening and inflammation at the distal/descending/proximal sigmoid colon with a 1.5x0.9 cm intramural abscess. General surgery was notified by EMD and recommendation was IV Abx and monitoring. Patient was started on Zosyn and will continue this. She will be admitted to medical floor, continue IVF, clear diet if she is able, pain control and monitor her biomarkers/infective trends. Patient had 2 root canals earlier in the week and has also been increasing her Motrin use, she denies any upper abdominal pain or discomfort and no changes with her stool. Admission Exam Per Admitting Provider General: awake, alert, no apparent distress Head: Normocephalic, atraumatic ENT: PERRL, EOMI, no pharyngeal exudate, mucous membranes dry Neuro: AAO x 3, speech clear and appropriate, strength intact bilaterally 5/5, sensation intact and equal all extremities and dermatomes, no pronator drift Chest: equal rise and fall of the chest, no accessory muscle use, no heaves or thrills, Clear to auscultation, on room air, Cardiac: Regular rate and rhythm, telemetry reviewed, skin warm dry, cap refill <3 seconds, peripheral pulses +2 no JVD, no murmur, no JVD, no edema GI: NABS x 4 quadrants, soft, tender to palpation LLQ, non rigid, no extraluminal air seen on CT scan : Spontaneously voiding, no pain, no CVA tenderness, Extremities: Normal inspection, no peripheral edema or erythema, calfs nontender to palpation Psych: Normal mood and affect Skin: no rash or erythema Principal Diagnosis Diverticulitis with abscess Discharge Exam Constitutional WD/WN, vitals as above Respiratory normal respiratory effort, lungs clear to auscultation Cardiovascular RRR, no murmur, no edema Gastrointestinal (Abdomen) Inspection/Auscultation: abdomen normal to inspection and normal bowel sounds; abdomen not distended Percussion/Palpation: abdomen soft; abdomen nontender, no guarding and abdomen not rigid Musculoskeletal no cyanosis or clubbing, extremities motor strength 5/5 Psychiatric A+Ox3, euthymic affect Discharge Data Allergies Allergy/AdvReac Type Severity Reaction Status Date / Time No Known Allergies Allergy Mild Unverified 03/04/21 17:00 Consultations 03/04/21 16:44 ED Decision to Admit Stat 03/04/21 20:38 Consult General Surgery Routine Hospital Course (1) Diverticulitis: Dk Garcia is a 75 year old female admitted to [facility] from February 02 to 2020 due to left lower quadrant abdominal pain. She was diagnosed with Acute complicated diverticulitis with 1.5 cm intramural abscess on CT. This was treated with intravenous Zosyn (antibiotic) during inpatient stay and diet was slowly increased (tolerating clears since admission). She is now tolerating a low fiber diet on daty of discharge. Given complication of abscess recommend total antibiotic duration 14 days as prescribed below with ciprofloxacin and metronidazole. Recommend sticking to low fiber diet for the next 7 days and following up with her PCP in approximately 1 week. (2) Leukocytosis: (3) Osteopenia: (4) DVT prophylaxis: Total Time Total Time Spent Total Time Spent (In Minutes): 40 Total Time Includes: Examination of the Patient, Discharge Planning and Medication Reconciliation Discharge Plan Discharge Items Patient Disposition: Home - Self-Care Reason For Visit: DIVERTICULITIS WITH ABSCESS Discharge Diagnosis: Diverticulitis with abscess Activity: Resume your previous activity Non-emergency contact: Primary Care Provider Call non-emergency contact if: you have any medication questions and your symptoms worsen Follow-up/Referrals: Julieth Farias DO [Primary Care Provider] - 03/10/21 9:10 am (approximately 1 week from discharge appt is with Katie Crain PA-c ) Diet: Low Fiber Addtl Attending Provider Instructions: You were admitted to [facility] from February 02 to 2020 due to left lower quadrant abdominal pain. You were diagnosed with Acute complicated diverticulitis with 1.5 cm intramural abscess. This was treated with intravenous Zosyn (antibiotic) during your inpatient stay and diet was slowly increased. You are now tolerating a low fiber diet and are ready for discharge. Given complication of abscess recommend total antibiotic duration 14 days as prescribed below. Please stick to a low fiber diet for the next 7 days (see hand out below). Pending Studies at Discharge: No Stand-Alone Forms: My [facility] Medications and DC Order Prescriptions: New ciprofloxacin HCl 500 mg tablet 500 mg PO BID 11 Days Qty: 22 RF: 0 metronidazole 500 mg tablet 500 mg PO TID 11 Days Qty: 33 RF: 0 Continued multivitamin Tablet 1 tab PO DAILY RF: 0 calcium carbonate 500 mg calcium (1,250 mg) Tablet 500 mg PO DAILY RF: 0 loratadine 10 mg Tablet 10 mg PO DAILY RF: 0 cholecalciferol (vitamin D3) 50 mcg (2,000 unit) Tablet 50 mcg PO DAILY RF: 0 lutein 10 mg Tablet 0 mg PO DAILY RF: 0 Probiotic 5 billion cell Capsule, Sprinkle 1 cap PO DAILY RF: 0 Discharge Orders: Discharge Order (Routine); Ordered 03/07/21 Ordered By: Edgar Baird/Other Patient Handouts: Low-Fiber Diet, Diverticulosis Diverticulitis, ED Diverticulitis Admission Data Admit Date/Time: 03/04/21 16:57 Attending Provider: Edgar Agudelo Admit Provider: Oral Ramon Primary Care Provider: Julieth Farias Other Providers: Julio Putnam ; Jordan Hernandez Other Interventions: Discharge Summary Assessment (RN) Last Done: 03/07/21 13:25 Coding Level of Care Code D/C Day Management >30 mins Diagnoses Diverticulitis K57.92 Leukocytosis D72.829 Leukocytosis type: unspecified Osteopenia M85.80 Osteopenia location: unspecified DVT prophylaxis Z29.9
== END 2021-03-07 14:23 | disposition home or self-care (01) | DRG 392 ==
LOC: ED 16:04 → SUATTDRO 16:57 → 3N 16:57